=== PATIENT | male | born 1955 | race Caucasian/White ===

== ENCOUNTER 2023-08-29 20:17 | Inpatient (IN) | payer MEDICARE ==
[2023-08-29 20:51] LABS: #Eosinphils 0.1 thou/uL (0.0-0.7); #Monocytes 0.7 thou/uL (0.11-0.59); #Neutrophils 6.9 thou/uL (1.40-6.50); %Basophils 0.4 % (0.0-1.0); %Eosinophils 1.4 % (0.0-10.0); %Lymphocytes 25.2 % (21.0-51.0); %Monocytes 6.5 % (0.0-10.0); %Neutrophils 66.1 % (42.0-75.0); Hematocrit 42.7 % (42.0-52.0); Hemoglobin 13.9 g/dL (14.0-18.0); Mean Corpuscular HGB CONC 32.6 g/dL (32.0-36.0); Mean Corpuscular Hemoglobin 30.9 pg (27.0-31.0); Mean Corpuscular Volume 94.9 fl (78.0-98.0); Mean Platelet Volume 9.9 fL (7.4-10.4); Platelet Count 460 10x3/uL (130-400); RBC Distribution Width 12.8 % (11.5-14.5); White Blood Cell (WBC) Count 10.4 10x3/uL (4.8-10.8)
[2023-08-29 21:06] LABS: ALT (SGPT) 18 U/L (8-55); AST (SGOT) 16 U/L (5-34); Albumin 4.3 g/dL (3.4-4.8); Alkaline Phosphatase 98 U/L (40-110); Anion Gap 12 mmol/L (10-20); BUN (Urea Nitrogen) 18 mg/dL (8.4-25.7); Bilirubin, Total 0.5 mg/dL (0.2-1.2); Calc. Creatinine Clearance 0 mL/min (70-130); Calcium 9.2 mg/dL (7.8-10.44); Carbon Dioxide 25 mmol/L (23-31); Chloride 105 mmol/L (98-107); Estimated GFR 52; Globulin 2.3 g/dL (2.4-3.5); Glucose 166 mg/dL (80-115); Lipase 14 U/L (8-78); Potassium 3.9 mmol/L (3.5-5.1); Protein, Total 6.6 g/dL (5.8-8.1); Sodium 138 mmol/L (136-145)
[2023-08-29 21:11] LABS: Troponin I Less than 0.010 ng/mL (< 0.028)
[2023-08-30] MEDS ORDERED: Dextrose 50% Abboject 50 ML SYRINGE SLOW IVP PRN (04:41)
[2023-08-30] MEDS ORDERED: Dextrose 5% in Water 1,000 ML IV PRN (04:41)
[2023-08-30] MEDS ORDERED: Ondansetron ODT 4 MG TAB PO PRN (04:41)
[2023-08-30] MEDS ORDERED: Acetaminophen 650 MG Suppository PR PRN (04:41)
[2023-08-30] MEDS ORDERED: Glucagon 1 MG/ML KIT IM PRN (04:41)
[2023-08-30] MEDS ORDERED: Ondansetron PF 4 MG/2 ML Vial IVP PRN (04:41)
[2023-08-30] MEDS ORDERED: HumaLOG 300 UNITS/3 ML VIAL SC PRN (04:41)
[2023-08-30 04:46] LABS: Troponin I Less than 0.010 ng/mL (< 0.028)
[2023-08-30] MEDS ORDERED: Digoxin 0.5 MG/2 ML AMP ONE (05:10)
[2023-08-30] MEDS: Digoxin 0.5 MG/2 ML AMP SLOW IVP SCH (05:25)
[2023-08-30 05:38] VITALS: BMI 28.7
[2023-08-30] MEDS ORDERED: Aspirin 325 MG TAB ONE (06:03)
[2023-08-30] MEDS ORDERED: Polyethylene Glycol 3350 17 GM Packet PO PRN (06:13)
[2023-08-30 06:15] LABS: #Eosinphils 0.2 thou/uL (0.0-0.7); #Monocytes 0.8 thou/uL (0.11-0.59); #Neutrophils 5.5 thou/uL (1.40-6.50); %Basophils 0.3 % (0.0-1.0); %Eosinophils 1.9 % (0.0-10.0); %Lymphocytes 31.9 % (21.0-51.0); %Monocytes 8.1 % (0.0-10.0); %Neutrophils 57.5 % (42.0-75.0); Hematocrit 41.4 % (42.0-52.0); Hemoglobin 13.4 g/dL (14.0-18.0); Mean Corpuscular HGB CONC 32.4 g/dL (32.0-36.0); Mean Corpuscular Hemoglobin 31.2 pg (27.0-31.0); Mean Corpuscular Volume 96.5 fl (78.0-98.0); Mean Platelet Volume 10.2 fL (7.4-10.4); Platelet Count 450 10x3/uL (130-400); RBC Distribution Width 13.1 % (11.5-14.5); Red Blood Cell (RBC) Count 4.29 mill/uL (4.70-6.10); White Blood Cell (WBC) Count 9.6 10x3/uL (4.8-10.8)
[2023-08-30] MEDS: Aspirin 325 MG TAB PO SCH (06:15)
[2023-08-30 06:34] LABS: Anion Gap 16 mmol/L (10-20); BUN (Urea Nitrogen) 16 mg/dL (8.4-25.7); Calc. Creatinine Clearance 82 mL/min (70-130); Calcium 9.2 mg/dL (7.8-10.44); Carbon Dioxide 23 mmol/L (23-31); Chloride 106 mmol/L (98-107); Estimated GFR 71; Glucose 154 mg/dL (80-115); Potassium 3.7 mmol/L (3.5-5.1); Sodium 141 mmol/L (136-145)
[2023-08-30] MEDS ORDERED: Electrolyte Replacement Protocol 1 EACH FS SCH (06:45)
[2023-08-30 06:47] LABS: Magnesium 2.3 mg/dL (1.6-2.6)
[2023-08-30] MEDS ORDERED: Enoxaparin 100 MG (1 mL) SYRINGE ONE (07:46)
[2023-08-30] MEDS ORDERED: Pantoprazole 40 MG VIAL ONE (07:46)
[2023-08-30] MEDS ORDERED: HumaLOG 300 UNITS/3 ML VIAL ONE (07:46)
[2023-08-30] MEDS: Pantoprazole 40 MG VIAL IVP SCH (08:01)
[2023-08-30] MEDS: Enoxaparin 100 MG (1 mL) SYRINGE SC SCH ×2 (08:01→20:57)
[2023-08-30] MEDS: HumaLOG 300 UNITS/3 ML VIAL SC PRN (08:02)
[2023-08-30 08:22] LABS: Bacteria/HPF None Seen HPF (None Seen); RBC/HPF None Seen HPF (0-3); Squamous Epithelial None Seen HPF (0-3); WBC/HPF None Seen HPF (0-3)
[2023-08-30] MEDS ORDERED: Metoprolol Tartrate 5 MG (5 mL) VIAL ONE ×2 (09:00→10:32)
[2023-08-30] MEDS ORDERED: Metoprolol Tartrate 50 MG TAB ONE (09:00)
[2023-08-30] MEDS ORDERED: LORazepam 2 MG/ML SYR.(CARPUJECT) ONE (10:38)
[2023-08-30] MEDS: Lorazepam 2 MG/ML VIAL SLOW IVP PRN (10:45)
[2023-08-30] MEDS: Metoprolol Tartrate 5 MG (5 mL) VIAL IVP SCH (15:32)
[2023-08-30] MEDS: dilTIAZem 25 MG/5 ML VIAL SLOW IVP SCH (16:48)
[2023-08-30] MEDS: dilTIAZem 125 MG in Sodium Chloride 0.9% 100 ML IVPB SCH (17:07)
[2023-08-30] MEDS: Senokot S 8.6-50 MG TAB PO SCH (20:57)
[2023-08-31] MEDS: Acetaminophen 325 MG TAB PO PRN (00:21)
[2023-08-31 05:44] LABS: #Eosinphils 0.1 thou/uL (0.0-0.7); #Monocytes 0.8 thou/uL (0.11-0.59); #Neutrophils 6.9 thou/uL (1.40-6.50); %Basophils 0.2 % (0.0-1.0); %Eosinophils 1.3 % (0.0-10.0); %Monocytes 7.8 % (0.0-10.0); %Neutrophils 66.4 % (42.0-75.0); Hematocrit 40.4 % (42.0-52.0); Hemoglobin 13.1 g/dL (14.0-18.0); Mean Corpuscular HGB CONC 32.4 g/dL (32.0-36.0); Mean Corpuscular Hemoglobin 30.8 pg (27.0-31.0); Mean Corpuscular Volume 94.8 fl (78.0-98.0); Platelet Count 418 10x3/uL (130-400); Red Blood Cell (RBC) Count 4.26 mill/uL (4.70-6.10); White Blood Cell (WBC) Count 10.4 10x3/uL (4.8-10.8)
[2023-08-31 06:57] LABS: ALT (SGPT) 16 U/L (8-55); AST (SGOT) 16 U/L (5-34); Albumin 3.9 g/dL (3.4-4.8); Alkaline Phosphatase 80 U/L (40-110); Anion Gap 17 mmol/L (10-20); BUN (Urea Nitrogen) 14 mg/dL (8.4-25.7); Bilirubin, Total 0.2 mg/dL (0.2-1.2); Calc. Creatinine Clearance 100 mL/min (70-130); Calcium 8.9 mg/dL (7.8-10.44); Carbon Dioxide 21 mmol/L (23-31); Chloride 107 mmol/L (98-107); Estimated GFR 86; Globulin 2.2 g/dL (2.4-3.5); Glucose 121 mg/dL (80-115); Potassium 3.5 mmol/L (3.5-5.1); Protein, Total 6.1 g/dL (5.8-8.1); Sodium 141 mmol/L (136-145)
[2023-08-31] MEDS: Potassium Chloride 20 MEQ TAB PO SCH (09:23)
[2023-08-31] MEDS: dilTIAZem CD 180 MG CAP PO SCH (09:23)
[2023-08-31] MEDS: Pantoprazole 40 MG VIAL IVP SCH (09:26)
[2023-08-31] MEDS: Zolpidem Tartrate 5 MG TAB PO PRN (22:30)
[2023-09-01 05:10] LABS: #Eosinphils 0.1 thou/uL (0.0-0.7); #Monocytes 0.9 thou/uL (0.11-0.59); #Neutrophils 6.3 thou/uL (1.40-6.50); %Basophils 0.2 % (0.0-1.0); %Eosinophils 1.3 % (0.0-10.0); %Lymphocytes 26.3 % (21.0-51.0); %Monocytes 8.7 % (0.0-10.0); Hematocrit 42.7 % (42.0-52.0); Hemoglobin 13.9 g/dL (14.0-18.0); Mean Corpuscular HGB CONC 32.6 g/dL (32.0-36.0); Mean Corpuscular Hemoglobin 31.4 pg (27.0-31.0); Mean Corpuscular Volume 96.6 fl (78.0-98.0); Mean Platelet Volume 9.6 fL (7.4-10.4); Platelet Count 460 10x3/uL (130-400); Red Blood Cell (RBC) Count 4.42 mill/uL (4.70-6.10)
[2023-09-01 05:42] LABS: Hemoglobin A1c 8.4 % (4.0-6.0)
[2023-09-01 06:09] LABS: ALT (SGPT) 14 U/L (8-55); AST (SGOT) 13 U/L (5-34); Albumin 4.2 g/dL (3.4-4.8); Alkaline Phosphatase 93 U/L (40-110); Anion Gap 12 mmol/L (10-20); BUN (Urea Nitrogen) 12 mg/dL (8.4-25.7); Bilirubin, Total 0.3 mg/dL (0.2-1.2); Calc. Creatinine Clearance 100 mL/min (70-130); Calcium 9.2 mg/dL (7.8-10.44); Carbon Dioxide 28 mmol/L (23-31); Cardiac Risk 3.8 (Less than 4.5); Chloride 107 mmol/L (98-107); Cholesterol 157 mg/dl (< 200 Desired); Estimated GFR 85; Globulin 2.7 g/dL (2.4-3.5); Glucose 163 mg/dL (80-115); HDL Cholesterol 41 mg/dL (>60 Neg Risk); LDL Cholesterol, Calculated 95 mg/dL; Potassium 3.9 mmol/L (3.5-5.1); Protein, Total 6.9 g/dL (5.8-8.1); Sodium 143 mmol/L (136-145); Triglycerides 105 mg/dL (Less than 150)
[2023-09-01] MEDS: busPIRone HCl 10 MG TAB PO SCH (08:02)
[2023-09-01] MEDS: Memantine 10 MG TAB PO SCH (08:03)
[2023-09-01] MEDS: Atorvastatin Calcium 40 MG TAB PO SCH (08:03)
[2023-09-01] MEDS: Levothyroxine Sodium 75 MCG TAB PO SCH (08:03)
[2023-09-01] MEDS: Insulin Glargine 30 UNITS/0.3 ML VIAL SC SCH (09:50)
[2023-09-01 11:46] VITALS: BP 119/68; TEMP 97.8
== END 2023-09-01 15:25 | disposition home or self-care (01) | DRG 309 ==
LOC: ERS 20:17 → 2SW 08-30 00:08 → ERHOLD 08-30 00:18 → 2SW 08-30 14:15 → OBSVTOIN 08-30 16:36
PROVIDERS: ADMIT Student in an Organized Health Care Education/Training Program; ATTEND Internal Medicine
DX: I48.91 Unspecified atrial fibrillation (principal); I50.22 Chronic systolic (congestive) heart failure; N17.9 Acute kidney failure, unspecified; I11.0 Hypertensive heart disease with heart failure; I47.10 Supraventricular tachycardia, unspecified; I42.9 Cardiomyopathy, unspecified; Z91.041 Radiographic dye allergy status; K59.00 Constipation, unspecified; E78.5 Hyperlipidemia, unspecified; F03.90 Unspecified dementia, unspecified severity, without behavioral disturbance, psychotic disturbance, mood disturbance, and anxiety; E11.9 Type 2 diabetes mellitus without complications; Z86.73 Personal history of transient ischemic attack (TIA), and cerebral infarction without residual deficits; Z98.890 Other specified postprocedural states; Z79.890 Hormone replacement therapy; Z79.84 Long term (current) use of oral hypoglycemic drugs; Z98.52 Vasectomy status; Z79.01 Long term (current) use of anticoagulants; Z79.899 Other long term (current) drug therapy
CPT/HCPCS: 36415; 36416; 71045; 80048; 80053; 80061; 81015; 83036; 83690; 83735; 83880; 84443; 84484; 85025; 93005; 93306; 93798; 96372; 96374; 96375; C9113; G0378; J1160; J1650; J1815; J2060; J3490

== ENCOUNTER 2025-06-13 20:49 | Emergency (ER) | payer MEDICARE ==
[2025-06-13] MEDS ORDERED: Acetaminophen 500 MG TAB ONE (22:58)
[2025-06-13 23:40] LABS: #Basophils 0.03 10x3/uL (0.0-0.2); #Eosinophils 0.11 10x3/uL (0.0-0.7); #Monocytes 0.50 10x3/uL (0.11-0.59); #Neutrophils 5.39 10x3/uL (1.40-6.50); %Basophils 0.4 % (0.0-1.0); %Eosinophils 1.3 % (0.0-10.0); %Lymphocytes 26.3 % (21.0-51.0); %Monocytes 6.1 % (0.0-10.0); %Neutrophils 65.5 % (42.0-75.0); Hematocrit 41.4 % (42.0-52.0); Hemoglobin 13.5 g/dL (14.0-18.0); Mean Corpuscular Hemoglobin 29.6 pg (27.0-31.0); Mean Corpuscular Volume 90.8 fL (78.0-98.0); Platelet Count 497 10x3/uL (130-400); Red Blood Cell (RBC) Count 4.56 mill/uL (4.70-6.10); White Blood Cell (WBC) Count 8.22 10x3/uL (4.8-10.8)
[2025-06-13 23:57] LABS: ALT (SGPT) 18 U/L (Less than 45); AST (SGOT) 24 U/L (11-34); Albumin 4.3 g/dL (3.1-4.5); Alkaline Phosphatase 99 U/L (40-110); Anion Gap 14 mmol/L (10-20); BUN (Urea Nitrogen) 13 mg/dL (8.4-25.7); Bilirubin, Total 0.2 mg/dL (0.3-1.2); Calc. Creatinine Clearance 0 mL/min (70-130); Calcium 9.2 mg/dL (7.8-10.44); Carbon Dioxide 25 mmol/L (23-31); Chloride 103 mmol/L (98-107); Globulin 3.1 g/dL (2.4-3.5); Glucose 315 mg/dL (80-115); Lipase 14 U/L (8-78); Magnesium 2.4 mg/dL (1.6-2.6); Potassium 4.2 mmol/L (3.5-5.1); Sodium 138 mmol/L (136-145)
[2025-06-14 00:32] LABS: Bacteria/HPF None Seen HPF (None Seen); CAUTI Indications for Culture < 2yrs of age; Glucose, Urine (Dipstick) Greater than 1000 mg/dL (Negative); Leukocyte Negative Leu/uL (Negative); Protein, Urine (Dipstick) Negative (Neg-Trace); RBC/HPF None Seen HPF (0-3); Specific Gravity, Urine 1.008 (1.002-1.036); WBC/HPF 0-3 HPF (0-3)
[2025-06-14 00:34] LABS: Urine Culture Reflex Yes Yes
== END 2025-06-14 01:38 | disposition home or self-care (01) ==
LOC: ERS 20:49
DX: M54.31 Sciatica, right side (principal); R10.31 Right lower quadrant pain; E11.9 Type 2 diabetes mellitus without complications; I10 Essential (primary) hypertension; I48.91 Unspecified atrial fibrillation; F17.220 Nicotine dependence, chewing tobacco, uncomplicated; F17.210 Nicotine dependence, cigarettes, uncomplicated; Z86.73 Personal history of transient ischemic attack (TIA), and cerebral infarction without residual deficits
CPT/HCPCS: 74176; 80053; 81001; 83690; 83735; 85025; 87086; 96361; 96372; 96374; J2270